=== PATIENT | male | born 1975 | race Caucasian/White ===

== ENCOUNTER 2019-05-30 10:34 | Emergency (ER) | payer BC ==
[~2019-05-30] VITALS: Ht 185.4 cm; Wt 113.8 kg
[2019-05-30 11:29] LABS: ABSOLUTE NEUTROPHILS 3.9 thou/uL (1.4-8.2); BASOPHILS 0.6 % (0.0-2.0); EOSINOPHILS 1.5 % (0.0-3.0); HEMATOCRIT 45.4 % (42.0-52.0); HEMOGLOBIN 15.4 gm/dL (14.0-18.0); LYMPHOCYTES 18.3 % (24.0-44.0); MCV 91.2 fL (80.0-100.0); MONOCYTES 7.1 % (1.0-8.0); PLATELET COUNT 219 thou/uL (150-400); POLYS 72.5 % (36.0-66.0); RBC 4.97 mil/uL (4.50-6.00); RDW 12.8 % (10.5-14.5); WBC 5.4 thou/uL (4.0-11.0)
[2019-05-30 11:47] LABS: CALCIUM 9.6 mg/dL (8.5-10.1); POTASSIUM 3.9 mmol/L (3.5-5.1)
[2019-05-30 11:52] LABS: ALBUMIN 4.1 g/dL (3.4-5.0); TOTAL BILIRUBIN 0.5 mg/dL (<0.1-1.0); TOTAL PROTEIN 8.1 g/dL (6.4-8.2)
[2019-05-30] MEDS ORDERED: NORVASC5 MG PO (12:04)
[2019-05-30] MEDS ORDERED: LOSARTAN POTAS100 MG PO (12:04)
[2019-05-30] MEDS ORDERED: OMEPRAZOLE40 MG PO (12:05)
[2019-05-30] MEDS ORDERED: SILDENAFIL CITR50 MG PO (12:05)
[2019-05-30 12:49] VITALS: BP 127/82
--- NOTE | 2019-06-02 15:49 | EKG ---
[place] [address] [facility] [place] [address] ELECTROCARDIOGRAM REPORT Name: JOHN PINON Room #: DEP STEVE Begum#: [id number] Admission: 05/30/19 Attend Phys: Discharge: 05/30/19 Date of : 79 Report #: [id number] THIS REPORT FOR: //name// [facility] ED Test Date: 2019-05-30 Test Time: 10:57:04 Pat Name: JOHN PINON Department: Room: Gender: Production Welder: SMITA : 1975 Requested By: Patricio Jefferson Order Number: [id number] MD: José Luis Ng Measurements Intervals [place] Rate: 73 P: 67 IA: 144 QRS: 48 QRSD: 104 T: 14 QT: 374 QTc: 413 Interpretive Statements Sinus rhythm Probable left atrial enlargement No previous ECG available for comparison Electronically Signed On 06-02-2019 15:49:04 MEDIA REPORTER by José Luis Ng [email or web address] <ELECTRONICALLY SIGNED> By: José Luis Ng MD 06/02/19 [id number] [id number] José Luis Ng MD /EPI
== END 2019-05-30 12:55 | disposition home or self-care (01) ==
LOC: ER 10:34
PROVIDERS: Emergency Medicine
DX: R42 Dizziness and giddiness (principal); I10 Essential (primary) hypertension; F17.200 Nicotine dependence, unspecified, uncomplicated